=== PATIENT | male | born 1945 | race Caucasian/White ===

== ENCOUNTER → 2017-11-03 | Outpatient (CLI) | payer MEDICARE ==
[2017-11-03 20:53] LABS: Hemoglobin A1C 5.8 % (4.0-6.0)
== END | disposition home or self-care (01) ==
LOC: LABWHC1 08:42
PROVIDERS: ATTEND Family Medicine
DX: E11.9 Type 2 diabetes mellitus without complications (principal)
CPT/HCPCS: 36415; 83036

== ENCOUNTER 2017-12-02 11:34 | Emergency (ER) | payer MEDICARE ==
[2017-12-02 12:04] VITALS: PULSE 65
--- NOTE | 2017-12-02 14:03 | XR ---
EXAMINATION TYPE: XR pelvis AP view DATE OF EXAM: 12/02/2017 CLINICAL HISTORY: pain TECHNIQUE: Single view the pelvis is submitted. FINDINGS: No evidence for fracture, dislocation or bony lesion. Total left hip prosthesis is in plac e. SI joints appear symmetric. IMPRESSION: 1. No acute fracture or dislocation seen. ICD 10 NO FRACTURE, INITIAL EVALUATION
--- NOTE | 2017-12-02 14:05 | XR ---
EXAMINATION TYPE: XR forearm LT DATE OF EXAM: 12/02/2017 COMPARISON: NONE HISTORY: Pain following fall TECHNIQUE: 2 view left forearm FINDINGS: No acute fractures are evident. Soft tissues have mild prominence over the mid forearm. No radiopaque foreign bodies are evident. IMPRESSION: 1. Soft tissue swelling mid forearm region. 2. No acute osseous abnormality. 3. Follow-up exams can be performed 7-10 days from acute trauma for continued pain.
--- NOTE | 2017-12-02 14:05 | XR ---
EXAMINATION TYPE: XR hand complete LT DATE OF EXAM: 12/02/2017 CLINICAL HISTORY: pain TECHNIQUE: Frontal, lateral and oblique images of the left hand are obtained. COMPARISON: None. FINDINGS: There is no acute fracture/dislocation evident. Severe degenerative narrowing first carpom etacarpal joint space and bony fragmentation and sclerosis. The overlying soft tissue appears unremar kable. IMPRESSION: There is no acute fracture or dislocation. ICD 10 NO FRACTURE, INITIAL EVALUATION
--- NOTE | 2017-12-02 14:07 | XR ---
EXAMINATION TYPE: XR lumbosacral spine min 4V DATE OF EXAM: 12/02/2017 CLINICAL HISTORY: pain COMPARISON: NONE TECHNIQUE: Frontal, lateral, and oblique images of the lumbar spine are obtained. FINDINGS: There are 5 lumbar type vertebral bodies identified. The lumbar spine shows satisfactory alignment without evidence of acute fracture or dislocation. Vertebral body heights are within normal limits. Moderate to Severe multilevel degenerative disc space narrowing and spondylosis. Severe face t joint arthropathy. Abdominal aortic aneurysm measuring 4.2 cm AP dimension. IMPRESSION: 1. No acute fracture or dislocation is seen in the lumbar spine. 2. Infrarenal abdominal aortic aneurysm. ICD 10 NO FRACTURE, INITIAL EVALUATION
--- NOTE | 2017-12-02 14:23 | ED ---
Fall HPI - General Chief Complaint: Fall Stated Complaint: fall from ladder 12 foot drop Time Seen by Provider: 12/02/17 13:06 Source: patient, family, RN notes reviewed Mode of arrival: ambulatory Limitations: no limitations - History of Present Illness Initial Comments: This is a 72-year-old male presents emergency Department chief complaint of fall. Patient states that he was fixing his flagpole and states that he is on metoprolol ladder and fell off to the ground. Patient states that he fell down with the latter. Patient complains of low back pain and left arm pain. Patient has a small abrasion to his left arm he is up-to-date on his tetanus. Patient states he has has pain when moving his left hand fifth digit. Patient denies head injury no loss conscious denies any neck or any upper back pain. Patient has no chest pain or shortness of breath. Denies any abdominal pain. Patient states he does state that he should be checked as he had a fall from significant height. Patient does not take any blood thinners. - Related Data Home Medications Medication Instructions Recorded Confirmed ALPRAZolam 0.5 mg PO TID PRN 08/08/14 12/02/17 Ipratropium-Albuterol Nebulize 3 ml INHALATION RT-QID PRN 08/08/14 12/02/17 [Duoneb 0.5 mg-3 mg/3 ml Soln] Lisinopril 40 mg PO DAILY 08/08/14 12/02/17 Metoprolol Tartrate 50 mg PO BID 08/08/14 12/02/17 Montelukast [Singulair] 10 mg PO HS 08/08/14 12/02/17 Pravastatin Sodium [Pravachol] 20 mg PO HS 08/08/14 12/02/17 metFORMIN HCL [Metformin HCl ER] 500 mg PO BID 08/08/14 12/02/17 Albuterol Sulfate [Proventil Hfa] 2 puff INHALATION RT-QID PRN 06/04/16 12/02/17 Budesonide [Pulmicort] 0.5 mg INHALATION RT-BID 12/02/17 12/02/17 Budesonide/Formoterol Fumarate 2 puff INHALATION RT-BID 12/02/17 12/02/17 [Symbicort 160-4.5 Mcg Inhaler] amLODIPine [Norvasc] 10 mg PO DAILY 12/02/17 12/02/17 Allergies Allergy/AdvReac Type Severity Reaction Status Date / Time cyclobenzaprine AdvReac Hallucinati Verified 12/02/17 13:14 [From Flexeril] ons Review of Systems ROS Statement: Those systems with pertinent positive or pertinent negative responses have been documented in the HPI. ROS Other: All systems not noted in ROS Statement are negative. Past Medical History Past Medical History: COPD, Diabetes Mellitus, Hypertension, Osteoarthritis (OA) , Sleep Apnea/CPAP/BIPAP Additional Past Medical History / Comment(s): BACK PAIN/TAILBONE FX. KIDNEY STONES History of Any Multi-Drug Resistant Organisms: None Reported Past Surgical History: Hernia Repair, Orthopedic Surgery Additional Past Surgical History / Comment(s): LT OBINNA, RT TKA, TOTAL LEFT KNEE ARTHROPLASTY,. COLONOSCOPY Past Anesthesia/Blood Transfusion Reactions: No Reported Reaction Past Psychological History: Anxiety Smoking Status: Former smoker Past Alcohol Use History: None Reported Past Drug Use History: None Reported - Past Family History Brother(s) Additional Family Medical History / Comment(s): He has 4 brothers and one at age 70 from an unknown reason with history of pneumonia, COPD and diabetes. Two brothers have history of myocardial infarction, diabetes and COPD Daughter(s) Additional Family Medical History / Comment(s): He has one daughter with no major medical problems. Son(s) Additional Family Medical History / Comment(s): He has one son with diabetes. Sister(s) Family Medical History: Deep Vein Thrombosis (DVT), Pulmonary Embolus Additional Family Medical History / Comment(s): He has one sister that at age 58 with history of MS, DVT and pulmonary embolism. Father Family Medical History: Cancer Additional Family Medical History / Comment(s): Father at age 72 from brain cancer. Mother Family Medical History: Cancer Additional Family Medical History / Comment(s): Mother at age 65 from uterine or ovarian cancer. General Exam General appearance: alert, in no apparent distress Head exam: Present: atraumatic, normocephalic, normal inspection Eye exam: Present: normal appearance, PERRL, EOMI. Absent: scleral icterus, conjunctival injection, periorbital swelling Neck exam: Present: normal inspection. Absent: tenderness, meningismus, lymphadenopathy Respiratory exam: Present: normal lung sounds bilaterally. Absent: respiratory distress, wheezes, rales, rhonchi, stridor Cardiovascular Exam: Present: regular rate, normal rhythm, normal heart sounds. Absent: systolic murmur, diastolic murmur, rubs, gallop, clicks GI/Abdominal exam: Present: soft, normal bowel sounds. Absent: distended, tenderness, guarding, rebound, rigid Extremities exam: Present: other (Left forearm there is an area of ecchymosis small abrasion patient has mild tenderness with full range of motion. Patient also has tenderness over the fifth digit and pain with range of motion. Patient 's remaining from exam within normal limits.) Back exam: Present: normal inspection, full ROM, tenderness (Mild tenderness of the lumbar spine), paraspinal tenderness, vertebral tenderness. Absent: CVA tenderness (R), CVA tenderness (L) Neurological exam: Present: alert, oriented X3, CN II-XII intact, reflexes normal. Absent: motor sensory deficit Skin exam: Present: warm, dry, intact, normal color. Absent: rash Course Vital Signs 12/02/17 11:58 Temperature 97.7 F Pulse Rate 65 Respiratory 18 Rate Blood Pressure 134/64 O2 Sat by Pulse 95 Oximetry Medical Decision Making - Medical Decision Making 72-year-old male presented from it chief complaint of a fall. Patient x-rays of his lumbar spine, pelvis, left arm and left hand. There is no acute fractures. There is an incidental finding of infrarenal abdominal aortic aneurysm. Patient has no pain this time. Patient will follow-up for further imaging. Patient we discharge patient is up-to-date on his tetanus. Return parameters were discussed. Disposition Clinical Impression: Fall, Contusion of left arm, Abrasion of left arm, Low back pain Disposition: HOME SELF-CARE Condition: Stable Instructions: Back Pain (ED), Contusion in Adults (ED) Additional Instructions: Please return to the Emergency Department if symptoms worsen or any other concerns. Is patient prescribed a controlled substance at d/c from ED?: No Referrals: Michel Dent MD [Primary Care Provider] - 1-2 days
[2017-12-02 14:38] VITALS: BP 168/78; RESP 16; TEMP 97
== END 2017-12-02 14:56 | disposition home or self-care (01) ==
LOC: EC 11:34
DX: S40.022A Contusion of left upper arm, initial encounter (principal); S50.12XA Contusion of left forearm, initial encounter; M54.5 Low back pain; I71.4 Abdominal aortic aneurysm, without rupture; I10 Essential (primary) hypertension; J44.9 Chronic obstructive pulmonary disease, unspecified; E11.9 Type 2 diabetes mellitus without complications; G47.30 Sleep apnea, unspecified; Z87.891 Personal history of nicotine dependence; Z79.51 Long term (current) use of inhaled steroids; Z79.84 Long term (current) use of oral hypoglycemic drugs; Z79.899 Other long term (current) drug therapy; Z88.8 Allergy status to other drugs, medicaments and biological substances; Z99.89 Dependence on other enabling machines and devices; W11.XXXA Fall on and from ladder, initial encounter; Y92.009 Unspecified place in unspecified non-institutional (private) residence as the place of occurrence of the external cause
CPT/HCPCS: 72110; 72170; 99283

== ENCOUNTER → 2018-07-28 | Outpatient (CLI) | payer OTHER ==
--- NOTE | 2018-07-30 07:45 | CT ---
EXAMINATION TYPE: CT abdomen pelvis wo con DATE OF EXAM: 07/28/2018 COMPARISON: None INDICATION: Right side flank pain. DLP: 1179 mGycm, Automated exposure control for dose reduction was used. CONTRAST: 0 mL of Isovue 300. Study performed without Oral Contrast TECHNIQUE: Axial images were obtained from above the diaphragm to the pubic rami in the axial plane a t 5 mm thick sections. Reconstructed images are reviewed on the computer in the coronal plane. FINDINGS: Limited CT sections are obtained the lung bases. The lung bases are clear. CT ABDOMEN: Liver: Normal Spleen: There are some scattered calcified granuloma through the spleen. Pancreas: Normal Adrenal glands: The adrenal glands are normal. Gallbladder: Normal Kidneys: No masses are evident. There is a mild left hydronephrosis. Large nonobstructing calcificati ons are within the mid to inferior pole left kidney measuring 1.5 x 0.8 cm. Additional nonobstructing renal stones are at the inferior pole measuring 0.5 0.3, and 0.2 cm. No obstructing ureteral stone i s evident. There is a 2.0 cm cyst measuring 3 Hounsfield units extending from the superior anterior p ortion of the left kidney. There is an inferior medial right renal cyst measuring 1.6 cm and 10 Houns field units. Right-sided renal stones are present. These are nonobstructing. This includes a 0.3 cm c alcification in the anterior right mid kidney and a 0.6 cm calcification at the inferior pole right k idney. Aorta: Vascular calcification is within the aorta. There is fusiform prominence of the mid abdominal aorta with an AP diameter of 3.4 cm. This terminates at the bifurcation. Inferior vena cava: Normal. CT PELVIS: Loops of bowel within the abdomen and pelvis are normal. Study is performed without oral contrast limiting bowel evaluation. Appendix: Not identified. No suspicious tubular structures or inflammatory changes are evident. Urinary bladder: Normal. Genitourinary structures: Prostate is mild prominence. Some prostate calcifications present. Osseous structures: No suspicious lytic or sclerotic lesions. There is beam hardening artifact from l eft hip prosthesis. IMPRESSIONS: 1. Multiple bilateral renal stones. Identified renal stones appear to be nonobstructing. 2. There is some mild left hydronephrosis from uncertain etiology. 3. Bilateral renal cysts.
== END | disposition home or self-care (01) ==
LOC: RADCTMAIN 15:13
PROVIDERS: ATTEND Physician Assistant
DX: N13.2 Hydronephrosis with renal and ureteral calculous obstruction (principal); N28.1 Cyst of kidney, acquired
CPT/HCPCS: 74176

== ENCOUNTER → 2019-02-22 | Outpatient (CLI) | payer OTHER | LOC: CPPFTMAIN 10:18 | PROVIDERS: ATTEND Internal Medicine | DX: J98.8 Other specified respiratory disorders (principal) | CPT/HCPCS: 94060; 94726; 94729 ==

== ENCOUNTER → 2019-02-25 | Outpatient (CLI) | payer OTHER ==
[2019-02-25 17:11] LABS: African American GFR (CKD) 98.5 (60.0-200.0); Anion Gap 11.6 mmol/L (4.00-12.00); BUN/Creat Ratio 16.67 Ratio (12.00-20.00); Calcium 9.6 mg/dL (8.7-10.3); Carbon Dioxide 24.4 mmol/L (21.6-31.8); Potassium 4.5 mmol/L (3.5-5.5)
== END | disposition home or self-care (01) ==
LOC: LABWHC1 08:47
PROVIDERS: ATTEND Internal Medicine Cardiovascular Disease
DX: I10 Essential (primary) hypertension (principal)
CPT/HCPCS: 36415; 80048

== ENCOUNTER 2019-03-21 17:29 | Emergency (ER) | payer OTHER, MEDICARE ==
[2019-03-21 17:52] VITALS: RESP 18; TEMP 98.1
[2019-03-21 18:43] VITALS: BP 155/86; PULSE 77
[2019-03-21] MEDS ORDERED: LIDOCAINE 5% PATCH TOPICAL STA (18:48)
[2019-03-21] MEDS ORDERED: KETOROLAC 30 MG/ML 1 ML VIAL IM STA (18:49)
[2019-03-21] MEDS ORDERED: METHOCARBAMOL 500 MG TAB PO STA (18:49)
--- NOTE | 2019-03-21 18:56 | ED ---
General Adult HPI - General Chief complaint: Urogenital Stated complaint: POSS KIDNEY STONE Time Seen by Provider: 03/21/19 18:17 Source: patient Mode of arrival: ambulatory Limitations: no limitations - History of Present Illness Initial comments: Patient is a 74-year-old male with history of kidney stone, low back pain and abdominal aortic aneurysm is presenting to emergency Department with a chief complaint of back pain. Patient reports the symptoms started approximately 3 days ago and have not resolved. Patient reports the pain is located in the right paraspinal region near L5 and S1. Patient reports the pain is exacerbated with left and right rotation. Patient reports the pain does not radiate anywhere. Patient reports the past few days he has also noticed his urine turning, very brown". Patient denies any other urinary symptoms. Patient also reports he has an abdominal aortic aneurysm that is monitored. Ultrasound every 6 months. The most recent reading is 3.5 cm. Patient denies any abdominal pain nausea or vomiting. Patient denies any chest pain or shortness of breath. - Related Data Home Medications Medication Instructions Recorded Confirmed ALPRAZolam 0.5 mg PO TID PRN 08/08/14 03/21/19 Ipratropium-Albuterol Nebulize 3 ml INHALATION RT-QID PRN 08/08/14 03/21/19 [Duoneb 0.5 mg-3 mg/3 ml Soln] Lisinopril 40 mg PO DAILY 08/08/14 03/21/19 Metoprolol Tartrate 50 mg PO BID 08/08/14 03/21/19 Montelukast [Singulair] 10 mg PO HS 08/08/14 03/21/19 Pravastatin Sodium [Pravachol] 20 mg PO HS 08/08/14 03/21/19 metFORMIN HCL [Metformin HCl ER] 500 mg PO BID 08/08/14 03/21/19 Albuterol Sulfate [Proventil Hfa] 2 puff INHALATION RT-QID PRN 06/04/16 03/21/19 Budesonide [Pulmicort] 0.5 mg INHALATION RT-BID 12/02/17 03/21/19 Budesonide/Formoterol Fumarate 2 puff INHALATION RT-BID 12/02/17 03/21/19 [Symbicort 160-4.5 Mcg Inhaler] amLODIPine [Norvasc] 10 mg PO DAILY 12/02/17 03/21/19 Tamsulosin [Flomax] 0.4 mg PO DAILY 03/21/19 03/21/19 Previous Rx's Medication Instructions Recorded Lidocaine 5% Patch [Lidoderm 5% 1 patch TOPICAL DAILY #5 patch 03/21/19 Patch] Methocarbamol [Robaxin] 500 mg PO BID #15 tab 03/21/19 Allergies Allergy/AdvReac Type Severity Reaction Status Date / Time cyclobenzaprine AdvReac Hallucinati Verified 03/21/19 19:05 [From Flexeril] ons Review of Systems ROS Statement: Those systems with pertinent positive or pertinent negative responses have been documented in the HPI. ROS Other: All systems not noted in ROS Statement are negative. Past Medical History Past Medical History: COPD, Diabetes Mellitus, Hypertension, Osteoarthritis (OA), Sleep Apnea/CPAP/BIPAP Additional Past Medical History / Comment(s): BACK PAIN/TAILBONE FX. KIDNEY STONES History of Any Multi-Drug Resistant Organisms: None Reported Past Surgical History: Hernia Repair, Orthopedic Surgery Additional Past Surgical History / Comment(s): LT OBINNA, RT TKA, TOTAL LEFT KNEE ARTHROPLASTY,. COLONOSCOPY Past Anesthesia/Blood Transfusion Reactions: No Reported Reaction Past Psychological History: Anxiety Smoking Status: Former smoker Past Alcohol Use History: None Reported Past Drug Use History: None Reported - Past Family History Brother(s) Additional Family Medical History / Comment(s): He has 4 brothers and one at age 70 from an unknown reason with history of pneumonia, COPD and diabetes. Two brothers have history of myocardial infarction, diabetes and COPD Daughter(s) Additional Family Medical History / Comment(s): He has one daughter with no major medical problems. Son(s) Additional Family Medical History / Comment(s): He has one son with diabetes. Sister(s) Family Medical History: Deep Vein Thrombosis (DVT), Pulmonary Embolus Additional Family Medical History / Comment(s): He has one sister that at age 58 with history of MS, DVT and pulmonary embolism. Father Family Medical History: Cancer Additional Family Medical History / Comment(s): Father at age 72 from brain cancer. Mother Family Medical History: Cancer Additional Family Medical History / Comment(s): Mother at age 65 from uterine or ovarian cancer. General Exam Limitations: no limitations General appearance: alert, in no apparent distress, obese (Morbidly obese) Head exam: Present: atraumatic, normocephalic, normal inspection Eye exam: Present: normal appearance, PERRL, EOMI Pupils: Present: normal accommodation ENT exam: Present: normal exam, mucous membranes moist, normal external ear exam Neck exam: Present: normal inspection, full ROM. Absent: tenderness Respiratory exam: Present: normal lung sounds bilaterally Cardiovascular Exam: Present: regular rate, normal rhythm, normal heart sounds GI/Abdominal exam: Absent: tenderness, guarding, rebound, mass, pulsatile mass (Patient morbidly obese difficult to palpate for masses.) Extremities exam: Present: normal inspection, other (+2 ulnar and radial pulses bilaterally. +2 dorsalis pedis and posterior tibialis bilaterally.) Back exam: Present: normal inspection, muscle spasm, paraspinal tenderness (Right paraspinal tenderness near L5 and S1.). Absent: full ROM (Limited range of motion with left and right rotation), CVA tenderness (R), CVA tenderness (L), rash noted Neurological exam: Present: alert, oriented X3 Psychiatric exam: Present: normal affect, normal mood Skin exam: Present: warm, intact, normal color Course Vital Signs 03/21/19 03/21/19 03/21/19 17:49 18:40 20:11 Temperature 98.1 F 98.1 F Pulse Rate 84 77 77 Respiratory 18 18 18 Rate Blood Pressure 153/77 155/86 155/86 O2 Sat by Pulse 98 96 96 Oximetry Medical Decision Making - Medical Decision Making Patient is 74-year-old male with history of chronic low back pain is presenting to emergency Department with chief complaint of back pain. Patient reports he has developed right-sided low back pain has not radiated anywhere. Patient reports the pain is exacerbated with left and right rotation. Patient also does have a known abdominal aortic aneurysm that is monitored with imaging every 6 months. Last reading was 3.5 cm. She denies any abdominal pain. Patient does have a history of kidney stones but states that this pain does not feel like it. Based on physical examination I suspect the patient to have mechanical low back pain with no vertebral tenderness. Patient given Toradol, Lidoderm patch and Robaxin. On reevaluation patient reports she feels much better. Patient was concerned for possible UTI due to the color of his urine. UA is unremarkable. Patient will be discharged with muscle relaxers. Strict return parameters were thoroughly discussed with patient was understanding and agreeable. Patient advised to follow with primary care. Case discussed with physician. - Lab Data Lab Results 03/21/19 Range/Units 19:07 Urine Color Yellow Urine Appearance Clear (Clear) Urine pH 5.5 (5.0-8.0) Ur Specific [place] 1.019 (1.001-1.035) Urine Protein Trace H (Negative) Urine Glucose (UA) Negative (Negative) Urine Ketones Negative (Negative) Urine Blood Moderate H (Negative) Urine Nitrite Negative (Negative) Urine Bilirubin Negative (Negative) Urine Urobilinogen <2.0 (<2.0) mg/dL Ur Leukocyte Esterase Negative (Negative) Urine RBC 58 H (0-5) /hpf Urine WBC 2 (0-5) /hpf Ur Squamous Epith Cells <1 (0-4) /hpf Hyaline Casts 8 H (0-2) /lpf Urine Mucus Rare H (None) /hpf Disposition Clinical Impression: Low back pain Disposition: HOME SELF-CARE Condition: Stable Instructions (If sedation given, give patient instructions): Low Back Strain (ED) Additional Instructions: Please take prescribed medication as directed. Alternate between Tylenol and ibuprofen for pain control. Please return to emergency department if symptoms worsen. Prescriptions: Lidocaine 5% Patch [Lidoderm 5% Patch] 1 patch TOPICAL DAILY #5 patch Methocarbamol [Robaxin] 500 mg PO BID #15 tab Is patient prescribed a controlled substance at d/c from ED?: No Referrals: [facility],Clinic [Primary Care Provider] - 1-2 days Time of Disposition: 20:02
[2019-03-21 19:16] LABS: Appearance,Urine Clear (Clear); Bilirubin,Urine Negative (Negative); Blood,Urine Moderate (Negative); Color,Urine Yellow; Glucose,Urine (UA) Negative (Negative); Hyaline Casts,Urine 8 /lpf (0-2); Ketones,Urine Negative (Negative); Leukocyte Esterase,Urine Negative (Negative); Mucus,Urine Rare /hpf; Nitrite,Urine Negative (Negative); PH, Urine 5.5 (5.0-8.0); Protein,Urine Trace (Negative); RBC,Urine 58 /hpf (0-5); Specific Gravity,Urine 1.019 (1.001-1.035); Squamous Epithelial Cell,Urine <1 /hpf (0-4); Urobilinogen,Urine <2.0 mg/dL (<2.0); WBC,Urine 2 /hpf (0-5)
== END 2019-03-21 20:14 | disposition home or self-care (01) ==
LOC: EC 17:29
DX: M54.5 Low back pain (principal); G89.29 Other chronic pain; M62.830 Muscle spasm of back; I71.4 Abdominal aortic aneurysm, without rupture; E66.01 Morbid (severe) obesity due to excess calories; J44.9 Chronic obstructive pulmonary disease, unspecified; E11.9 Type 2 diabetes mellitus without complications; I10 Essential (primary) hypertension; M19.90 Unspecified osteoarthritis, unspecified site; G47.30 Sleep apnea, unspecified; F41.9 Anxiety disorder, unspecified; Z79.84 Long term (current) use of oral hypoglycemic drugs; Z79.51 Long term (current) use of inhaled steroids; Z79.899 Other long term (current) drug therapy; Z88.8 Allergy status to other drugs, medicaments and biological substances; Z87.891 Personal history of nicotine dependence; Z99.89 Dependence on other enabling machines and devices; Z96.651 Presence of right artificial knee joint; Z96.642 Presence of left artificial hip joint; Z68.42 Body mass index [BMI] 45.0-49.9, adult; Z87.442 Personal history of urinary calculi
CPT/HCPCS: 81001; 96372; 99283; J1885

== ENCOUNTER → 2019-04-05 | Outpatient (CLI) | payer MEDICARE ==
--- NOTE | 2019-04-05 09:34 | XR ---
EXAMINATION TYPE: XR lumbosacral spine min 4V DATE OF EXAM: 04/05/2019 CLINICAL HISTORY: pain COMPARISON: NONE TECHNIQUE: Frontal, lateral, and oblique images of the lumbar spine are obtained. FINDINGS: There are 5 lumbar type vertebral bodies identified. The lumbar spine shows satisfactory alignment without evidence of acute fracture or dislocation. Vertebral body heights are within normal limits. Moderate degenerative disc space narrowing and spondylosis. Moderate to severe lower lumbar facet joint arthropathy. The overlying soft tissue appears unremarkable. IMPRESSION: No acute fracture or dislocation is seen in the lumbar spine.ICD 10 NO FRACTURE, INITIAL EVALUATION
--- NOTE | 2019-04-05 16:55 | US ---
EXAMINATION TYPE: US kidneys/renal and bladder DATE OF EXAM: 04/05/2019 COMPARISON: CT 07/28/18, US 11/06/15 CLINICAL HISTORY: R31.9 Hematuria. History of renal stones. EXAM MEASUREMENTS: Right Kidney: 13.8 x 6.7 x 5.2 cm Left Kidney: 12.8 x 6.3 x 5.6 cm Post Void Residual Volume: 9.8 mL Right Kidney: No hydronephrosis or masses seen, nonshadowing echogenic foci in kidney, Left Kidney: No hydronephrosis seen, Upper pole cyst = 2.7 x 2.5 x 2.4 cm, 3 echogenic, shadowing joaquin al stones noted mid/lower pole = 0.6 cm, 0.6 cm, 1.3 cm Bladder: wnl Bilateral Jets seen: Yes Normal Post Void Residual: Yes Sub optimal exam overall due to patients large size. IMPRESSION: 1. Left renal cysts. 2. Nonshadowing nonobstructing renal stones bilaterally
== END | disposition home or self-care (01) ==
LOC: RADUSWWP 06:49
PROVIDERS: ATTEND Family Medicine
DX: N28.1 Cyst of kidney, acquired (principal); N20.0 Calculus of kidney; M54.5 Low back pain
CPT/HCPCS: 72110; 76770

== ENCOUNTER 2022-12-22 14:39 | Emergency (ER) | payer OTHER, MEDICARE ==
[2022-12-22] MEDS ORDERED: KETOROLAC 15 MG/ML 1 ML VIAL IM STA (15:08)
[2022-12-22] MEDS ORDERED: HYDROmorphone 0.5 MG/0.5 ML SYRINGE IM STA (15:17)
--- NOTE | 2022-12-22 15:54 | XR ---
EXAMINATION TYPE: XR shoulder complete RT DATE OF EXAM: 12/22/2022 CLINICAL HISTORY: pain TECHNIQUE: Three views of the right shoulder are obtained. COMPARISON: None FINDINGS: There is no acute fracture/dislocation evident. The acromioclavicular and glenohumeral nicholas int spaces appear moderately narrowed. Spur formation noted about the humeral head and glenoid.. The visualized ribs are intact and unremarkable. IMPRESSION: 1. There is no acute fracture or dislocation. ICD 10 NO FRACTURE, INITIAL EVALUATION
[2022-12-22] MEDS ORDERED: ACET/COD 300 MG/30 MG STARTER PACK 6 TAB BTL PO STA (16:43)
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
[2022-12-22 17:09] VITALS: BP 135/71; PULSE 80; RESP 18; TEMP 97.6
== END 2022-12-22 17:09 | disposition home or self-care (01) ==
LOC: EC 14:39
DX: S46.911A Strain of unspecified muscle, fascia and tendon at shoulder and upper arm level, right arm, initial encounter (principal); J44.9 Chronic obstructive pulmonary disease, unspecified; E11.9 Type 2 diabetes mellitus without complications; I10 Essential (primary) hypertension; M19.90 Unspecified osteoarthritis, unspecified site; G47.30 Sleep apnea, unspecified; F41.9 Anxiety disorder, unspecified; Z79.51 Long term (current) use of inhaled steroids; Z79.84 Long term (current) use of oral hypoglycemic drugs; Z79.1 Long term (current) use of non-steroidal anti-inflammatories (NSAID); Z79.899 Other long term (current) drug therapy; Z88.6 Allergy status to analgesic agent; W01.0XXA Fall on same level from slipping, tripping and stumbling without subsequent striking against object, initial encounter
CPT/HCPCS: 73030; 99283; 96372; J1170

== ENCOUNTER → 2023-02-12 | Outpatient (CLI) | payer MEDICARE ==
--- NOTE | 2023-02-12 10:36 | XR ---
EXAMINATION TYPE: XR cervical spine comp DATE OF EXAM: 02/12/2023 COMPARISON: None HISTORY: Weakness right upper extremity, neck and shoulder pain TECHNIQUE: 5 view cervical spine FINDINGS: Facet degenerative changes are present. There is left foraminal narrowing C2-3 C3-4. Modera te right foraminal narrowing is present at C4-5. Prevertebral space is normal. Posterior spinal lamel lar line is intact. Some mild posterior disc space narrowing is present C4-5. Odontoid is limited wit h overlying occiput. MRI can be performed as clinically indicated. IMPRESSION: 1. Mild C2-3 C3-4 left foraminal narrowing. 2. Moderate right C4-5 foraminal narrowing.
--- NOTE | 2023-02-19 10:19 | MR ---
EXAMINATION TYPE: MR shoulder RT wo con DATE OF EXAM: 02/12/2023 COMPARISON: X-ray 12/22/2022 HISTORY: Right shoulder pain due to injury. TECHNIQUE: Multiplanar, multisequence imaging of the right shoulder is performed without contrast. FINDINGS: Rotator Cuff: There is diffuse tendinopathy and thickening of the distal margins of the supraspinatus , infraspinatus and subscapularis tendons with complete or near complete the thickness tear of the ab ove tendons. Acromioclavicular Joint: There is severe hypertrophic change and narrowing of the AC joint with mass effect upon the rotator cuff resulting in impingement. Glenohumeral Joint: Severe narrowing of the glenohumeral joint spurring along the inferior margin of the glenoid and humerus. There is a small joint effusion. There is thickening of the inferior glenohu meral ligament without definitive tear. Labrum: Assessment of the labrum limited by motion suspect degenerative labral tear. Biceps Tendon: The long head of biceps is in normal location within bicipital groove. Increased fluid surrounding the tendon compatible with bicipital tendinosis. Bone marrow signal: No focal abnormal marrow signal is appreciated. Other: There is atrophic change of the visualized musculature correlate clinically. Intrasubstance mu scular signal associated with intramuscular strain. IMPRESSION: 1. Severe diffuse tendinopathy of the rotator cuff tendons with complete or near complete true thickn ess tears of the supraspinatus, infraspinatus, and subscapularis tendons. 2. Bicipital tendinosis. There is thickening of the tendon at the level the biceps anchor and Intrasubstance at the bicipital anchor suspected. 3. Severe glenohumeral joint 4. Severe AC joint arthropathy with impingement.
== END | disposition home or self-care (01) ==
LOC: RADMRIMAIN 08:33
PROVIDERS: ATTEND Family Medicine
DX: M19.011 Primary osteoarthritis, right shoulder (principal); M25.811 Other specified joint disorders, right shoulder; S46.011A Strain of muscle(s) and tendon(s) of the rotator cuff of right shoulder, initial encounter; M75.21 Bicipital tendinitis, right shoulder; M99.71 Connective tissue and disc stenosis of intervertebral foramina of cervical region; R29.898 Other symptoms and signs involving the musculoskeletal system
CPT/HCPCS: 72050

== ENCOUNTER → 2023-04-16 | Outpatient (CLI) | payer MEDICARE ==
--- NOTE | 2023-04-16 15:12 | CT ---
EXAMINATION TYPE: CT abdomen pelvis wo con DATE OF EXAM: 04/16/2023 COMPARISON: 07/28/2018 HISTORY: Suspected Lt side renal stone, hematuria. CT DLP: 2449.6 mGycm Automated exposure control for dose reduction was used. TECHNIQUE: Helical acquisition of images was performed from the lung bases through the pelvis. FINDINGS: LUNG BASES: There is calcification of the aortic valve. Trace of pericardial fluid. Heart size normal . Basilar atelectasis on the left. LIVER/GB: Multiple hepatic granuloma. PANCREAS: No significant abnormality is seen. SPLEEN: Numerous splenic granuloma. ADRENALS: Stable thickening of the left adrenal gland compatible with hyperplasia or benign adenoma. KIDNEYS: There is multiple punctate bilateral renal calculi the largest is seen on the left involving the mid to lower pole measuring 1.2 cm. There is mild left hydronephrosis secondary to a distal ureteral calc ulus measuring 4 mm in diameter in the mid pelvis. Axial image 111 series 3. There is a 1.8 cm upper pole left renal lesion which does not meet the criteria of a simple cyst by H ounsfield unit measurement of 26. There is a lower pole left renal lesion measuring 1.2 cm and 15 Irish nsfield units compatible with simple cyst. FREE AIR: No free air is visualized ADENOPATHY: None visualized REPRODUCTIVE ORGANS: No significant abnormality is seen URINARY BLADDER: Limited by artifact from a left hip prostheses. Bladder appears nondistended with n o obvious calcification. Prostate is enlarged measuring 5.5 cm. OSSEOUS STRUCTURES: Hypertrophic and degenerative changes of the spine. Postoperative changes involv ing the left hip both hip replacement surgery. BOWEL: 1 changes of diverticulosis but no CT evidence of diverticulitis. Appendix not seen with cert ainty. No evidence of obstruction. OTHER: There is a 3.6 cm infrarenal abdominal aortic aneurysm extending to the aortic bifurcation. Mi ld to moderate atherosclerotic plaque. IMPRESSION: 1. Bilateral nephrolithiasis with mild to moderate left hydronephrosis secondary to a distal left ure teral calculus, image 111 series 3, several centimeters above the UVJ. Measures 4 mm in diameter. 2. Indeterminate upper pole left renal lesion for which ultrasound recommended measuring 26 Hounsfiel d units. Infrarenal abdominal aortic aneurysm measuring 3.6 cm in maximal dimension and previously measuring 3 .4 cm
== END | disposition home or self-care (01) ==
LOC: RADCTMAIN 13:44
PROVIDERS: ATTEND Urology
DX: I71.43 Infrarenal abdominal aortic aneurysm, without rupture (principal); N13.2 Hydronephrosis with renal and ureteral calculous obstruction; R31.0 Gross hematuria; N23 Unspecified renal colic
CPT/HCPCS: 74176

== ENCOUNTER → 2023-04-22 | Outpatient (CLI) | payer MEDICARE ==
--- NOTE | 2023-04-22 10:25 | XR ---
EXAMINATION TYPE: XR KUB DATE OF EXAM: 04/22/2023 Comparison: 10/14/2015 Clinical History: 78-year-old male N20.0 CALCULUS L KIDNEY N20.1 CALCULUS L URETER Findings: 6 mm calcification projecting at the lower pole right kidney. 1.7 cm calcification left mid abdomen. Bilateral pelvic phleboliths are noted. Nonobstructive bowel gas pattern. Partially visualized left h ip total arthroplasty. Impression: A renal stone on either side measuring 6 mm on the right and 1.7 cm on the left. Bilateral pelvic phl eboliths.
== END | disposition home or self-care (01) ==
LOC: RADXRMAIN 09:18
PROVIDERS: ATTEND Urology
DX: N20.2 Calculus of kidney with calculus of ureter (principal)
CPT/HCPCS: 74018

== ENCOUNTER → 2023-05-13 | Outpatient (CLI) | payer MEDICARE ==
--- NOTE | 2023-05-13 12:12 | XR ---
EXAMINATION TYPE: XR KUB DATE OF EXAM: 05/13/2023 COMPARISON: KUB 04/22/2023, CT abdomen pelvis 04/16/2023 HISTORY: Calculus kidney, URETER TECHNIQUE: Supine KUB image of the abdomen is obtained FINDINGS: Small bowel demonstrates no evidence for dilatation or air fluid levels. Gas and fecal material is seen in non-distended colon. Stable left pelvic phlebolith. Redemonstration of left renal 1.5 cm calculus with additional for more calculus. Redemonstration of 5 mm right renal calculus. The osseous structures are intact. Degenerative changes of the lumbar spine. Left hip prosthesis. Ost eoarthritic changes of the right hip. IMPRESSION: Redemonstration of bilateral renal calculi with left-sided pelvic phleboliths.
== END | disposition home or self-care (01) ==
LOC: RADXRMAIN 11:41
PROVIDERS: ATTEND Urology
DX: N20.0 Calculus of kidney (principal); I86.2 Pelvic varices
CPT/HCPCS: 74018

== ENCOUNTER → 2023-06-10 | Outpatient (CLI) | payer MEDICARE ==
--- NOTE | 2023-06-10 19:13 | US ---
EXAMINATION TYPE: US kidneys/renal and bladder DATE OF EXAM: 06/10/2023 COMPARISON: CT abdomen and pelvis 04/16/2023 CLINICAL INDICATION: Male, 78 years old with history of N20.0 CALCULUS OF KIDNEY; Hx renal stones. N o pain at this time. EXAM MEASUREMENTS: Right Kidney: 12.4 x 5.2 x 5.0 cm Left Kidney: 10.9 x 5.3 x 5.4 cm Limited due to patient body habitus Right Kidney: No prominent hydronephrosis or masses seen Left Kidney: Lower pole calcification = 1.2 cm. Upper medial pole anechoic lesion = 3.7 x 3.4 x 2.8 c m. Compatible simple cyst Renal sinus mid/lower anechoic area, dilated renal collecting system vs mil d hydronephrosis = 2.5 x 1.1 cm Bladder: Distended, anechoic Bilateral Jets seen Findings. Correlate with CT findings of 04/16/2023 IMPRESSION: 1. Nonobstructing inferior pole left renal stone. 2. There may be some minimal prominence of the lower pole renal collecting system. Consider duplicati on with mild hydronephrosis. No obstructing etiology however is identified.
== END | disposition home or self-care (01) ==
LOC: RADUSWWP 14:49
PROVIDERS: ATTEND Urology
DX: N13.2 Hydronephrosis with renal and ureteral calculous obstruction (principal)
CPT/HCPCS: 76770

== ENCOUNTER → 2023-07-10 | Outpatient (CLI) | payer MEDICARE ==
--- NOTE | 2023-07-10 13:55 | US ---
EXAMINATION TYPE: US kidneys/renal and bladder DATE OF EXAM: 07/10/2023 COMPARISON: CLINICAL INDICATION: Male, 78 years old with history of N13.2 HYDRONEPHROSIS; No pain at this time. EXAM MEASUREMENTS: Right Kidney: 12.1 x 5.0 x 4.8 cm Left Kidney: 11.2 x 4.2 x 5.3 cm Suboptimal due to patient body habitus Right Kidney: No hydronephrosis or masses seen Left Kidney: Lower pole calcification = 0.8 cm. Upper medial pole anechoic lesion = 3.7 x 2.8 x 2.6 c m. Renal sinus mid/lower anechoic area, dilated renal collecting system vs mild hydronephrosis = 2.4 x 1.9 cm Bladder: nondistended, not well visualized Bilateral Jets not seen Incidental finding: multiple diffuse non shadowing echogenic foci in spleen There is no evidence for hydronephrosis at this point in time. No nephrolithiasis is seen. No shane s are identified. The urinary bladder is anechoic. Bilateral ureteral jets are seen. IMPRESSION: Left renal calcifications. No obstruction is identified.
== END | disposition home or self-care (01) ==
LOC: RADUSWWP 12:04
PROVIDERS: ATTEND Urology
DX: N28.89 Other specified disorders of kidney and ureter (principal); N13.2 Hydronephrosis with renal and ureteral calculous obstruction
CPT/HCPCS: 76770

== ENCOUNTER → 2023-07-24 | Outpatient (CLI) | payer MEDICARE ==
--- NOTE | 2023-07-24 09:23 | CT ---
EXAMINATION TYPE: CT abdomen pelvis wo con DATE OF EXAM: 07/24/2023 HISTORY: chronic kidney stones, bilateral flank pain CT DLP: 2235.2 mGycm. Automated Exposure Control for Dose Reduction was Utilized. TECHNIQUE: CT scan of the abdomen and pelvis is performed without oral or IV contrast. COMPARISON: Prior CT April 16, 2023 FINDINGS: Within the limitations of a non-contrast study, the following observations are made. LUNG BASES: Liver is heterogeneously hypodense consistent with fatty infiltrative hepatocellular dise ase. Occasional punctate calcification is redemonstrated. LIVER/GB: No significant abnormality is appreciated. PANCREAS: No significant abnormality is seen. SPLEEN: Scattered punctate calcific location throughout the spleen are again seen. Findings consisten t with product of old granulomatous disease. ADRENALS: No significant abnormality is seen. KIDNEYS: Approximate 3 calculi in lower pole right kidney measuring up to 6 mm in size redemonstrated . There is 2.3 cm partially exophytic simple appearing thin-walled cyst medially from the lower pole right kidney. No right-sided hydronephrosis. There is 3.3 cm partially exophytic thin-walled cyst ant eriorly from the upper pole left kidney redemonstrated. There are 2 left-sided renal calculi measurin g up to 1.7 cm in size lower pole level axial image 67. No left-sided hydronephrosis. There is howeve r new 8 mm calculus in the distal left ureter axial image 127. No intraluminal calculus in the urinar y bladder. BOWEL: Some diverticula in the left and sigmoid colon. No CT evidence for acute diverticulitis. GENITAL ORGANS: Mildly enlarged prostate gland consistent with BPH. LYMPH NODES: No greater than 1cm abdominal or pelvic lymph nodes are appreciated. OSSEOUS STRUCTURES: Metallic hardware from total left hip arthroplasty is present causing streak mague fact limiting evaluation of pelvic structures. Multilevel spurring in the thoracolumbar spine. OTHER: Moderate calcified plaque of the aorta extends into branch vessels. IMPRESSION: Bilateral nephrolithiasis redemonstrated. There is 8 mm calculus in the distal left urete r on current study but is not causing significant left-sided hydronephrosis. No right-sided hydroneph rosis or obstructing ureteral calculi seen.
== END | disposition home or self-care (01) ==
LOC: RADCTMAIN 08:49
PROVIDERS: ATTEND Urology
DX: N13.2 Hydronephrosis with renal and ureteral calculous obstruction (principal)
CPT/HCPCS: 74176

== ENCOUNTER → 2023-09-11 | Outpatient (CLI) | payer MEDICARE ==
[2023-09-11 11:35] LABS: Blood Urea Nitrogen 32.5 mg/dL (9.0-27.0); Calcium 10.4 mg/dL (8.7-10.3); Carbon Dioxide 22.4 mmol/L (21.6-31.8); Chloride 105 mmol/L (96-109); Glucose 135 mg/dL (70-110); Sodium 144 mmol/L (135-145)
[2023-09-11 11:39] LABS: Basophils # (A) 0.04 X 10*3/uL (0.00-0.10); Basophils % (A) 0.7 %; Eosinophils # (A) 0.29 X 10*3/uL (0.04-0.35); Eosinophils % (A) 5.3 %; HCT 37.7 % (39.6-50.0); HGB 11.6 g/dL (13.0-17.0); Lymphocytes # (A) 1.68 X 10*3/uL (0.90-5.00); Lymphocytes % (A) 30.5 %; MCH 29.1 pg (27.0-32.0); MCHC 30.8 g/dL (32.0-37.0); MCV 94.7 FL (80.0-97.0); Mean Platelet Volume 9.5 FL (9.5-12.2); Monocytes # (A) 0.41 X 10*3/uL (0.20-1.00); Monocytes % (A) 7.4 %; NRBC Per 100 WBC 0 X 10*3/uL (0.00-0.01); Neutrophils # (A) 3.07 X 10*3/uL (1.80-7.70); Neutrophils % (A) 55.7 %; Platelet Count 265 X 10*3/uL (140-440); RBC 3.98 X 10*6/uL (4.40-5.60); RDW 14.6 % (11.5-14.5); WBC 5.51 X 10*3/uL (4.50-10.00)
== END | disposition home or self-care (01) ==
LOC: LABPAT 07:02
PROVIDERS: ATTEND Urology
DX: Z01.812 Encounter for preprocedural laboratory examination (principal); N20.1 Calculus of ureter
CPT/HCPCS: 80048; 85025

== ENCOUNTER 2023-09-17 09:40 | Day surgery (SDC) | payer MEDICARE ==
[2023-09-11 15:40] VITALS: BMI 43.5
--- NOTE | 2023-09-15 07:02 | P.GSHP ---
History of Present Illness H&P Date: 09/15/23 Chief Complaint: Left ureteral calculus Patient is a 78-year-old white male with a history of urolithiasis. CT scan in April 2023 showed mild left hydronephrosis due to a 7 x 11 mm left distal ureteral calculus. He was also found to have a small right renal calculi and mu ltiple left renal calculi measuring up to 12 mm in size. He was experiencing left flank pain at that time, which has resolved. Repeat CT scan in July 24, 2023 showed a persistent left distal ureteral calculus. There was no hydronephrosis at that time. - Constitutional Constitutional: Denies chills, Denies fever - Gastrointestinal Gastrointestinal: Denies nausea, Denies vomiting - Genitourinary (Male) Genitourinary: Reports flank pain, Reports kidney stones Past Medical History Past Medical History: COPD, Diabetes Mellitus, Hypertension, Osteoarthritis (OA), Pneumonia, Sleep Apnea/CPAP/BIPAP Additional Past Medical History / Comment(s): KIDNEY STONES, uses cpap,vertigo, hx chronic back and rt shoulder pain,PSEUDOMONAS INFECTION IN LUNGS 2011 History of Any Multi-Drug Resistant Organisms: None Reported Past Surgical History: Hernia Repair, Orthopedic Surgery Additional Past Surgical History / Comment(s): LT OBINNA, RT TKA, TOTAL LEFT KNEE ARTHROPLASTY,. COLONOSCOPY Past Anesthesia/Blood Transfusion Reactions: No Reported Reaction, Motion Sickness Additional Past Anesthesia/Blood Transfusion Reaction / Comment(s): vertigo Smoking Status: Former smoker - Past Family History Brother(s) Additional Family Medical History / Comment(s): He has 4 brothers and one at age 70 from an unknown reason with history of pneumonia, COPD and diabetes. Two brothers have history of myocardial infarction, diabetes and COPD Daughter(s) Additional Family Medical History / Comment(s): He has one daughter with no major medical problems. Son(s) Family Medical History: No Reported History Additional Family Medical History / Comment(s): He has one son with diabetes. Sister(s) Family Medical History: Deep Vein Thrombosis (DVT), Pulmonary Embolus Additional Family Medical History / Comment(s): He has one sister that at age 58 with history of MS, DVT and pulmonary embolism. Father Family Medical History: Cancer Additional Family Medical History / Comment(s): Father at age 72 from brain cancer. Mother Family Medical History: Cancer Additional Family Medical History / Comment(s): Mother at age 65 from uterine or ovarian cancer. Medications and Allergies Home Medications Medication Instructions Recorded Confirmed Type ALPRAZolam 0.5 mg PO TID PRN 08/08/14 09/11/23 History Metoprolol Tartrate 50 mg PO BID 08/08/14 09/11/23 History Montelukast [Singulair] 10 mg PO HS 08/08/14 09/11/23 History lisinopriL 40 mg PO QAM 08/08/14 09/11/23 History metFORMIN HCL [Metformin HCl ER] 500 mg PO BID 08/08/14 09/11/23 History Albuterol Sulfate [Proventil Hfa] 2 puff INHALATION RT-QID PRN 06/04/16 09/11/23 History Budesonide [Pulmicort] 0.5 mg INHALATION RT-BID 12/02/17 09/11/23 History Budesonide/Formoterol Fumarate 2 puff INHALATION RT-BID 12/02/17 09/11/23 History [Symbicort 160-4.5 Mcg Inhaler] amLODIPine [Norvasc] 10 mg PO QAM 12/02/17 09/11/23 History Ascorbic Acid [Vitamin C] 500 mg PO DAILY 09/11/23 09/11/23 History Cholecalciferol [Vitamin D3 (25 50 mcg PO DAILY 09/11/23 09/11/23 History Mcg = 1000 Iu)] L.acidoph,Paracasei, B.lactis 1 each PO DAILY 09/11/23 09/11/23 History [Probiotic] Mv-Min/Folic/K1/Lycopen/Lutein 1 each PO DAILY 09/11/23 09/11/23 History [Centrum Silver Men Tablet] Turmeric/Turmeric Root Extract 1 each PO DAILY 09/11/23 09/11/23 History [Turmeric 450-50 mg Capsule] Vitamin B Complex 1 each PO DAILY 09/11/23 09/11/23 History Vitamin E Unk Dose 1 dose PO DAILY 09/11/23 09/11/23 History Allergies Allergy/AdvReac Type Severity Reaction Status Date / Time cyclobenzaprine AdvReac Hallucinati Verified 09/11/23 15:05 [From Flexeril] ons Surgical - Exam - General well developed, well nourished, no distress - Respiratory normal respiratory effort - Psychiatric oriented to time, oriented to person, oriented to place, speech is normal, memory intact Results - Imaging CT scan - abdomen: report reviewed, image reviewed Assessment and Plan (1) Calculus of ureter Status: Acute Code(s): N20.1 - CALCULUS OF URETER SNOMED Code(s): 77658489 Plan: Cystoscopy, left retrograde pyelogram, left ureteroscopy with Holmium laser lithotripsy and possible stone basketing, possible left ureteral stent insertion. The procedure has been reviewed in detail with the patient. He is aware of potential risks, which include anesthesia, bleeding, infection, inability to remove the calculus, and ureteral injury. He has elected to undergo removal of the ureteral calculus, but wishes to observe the renal calculi. He hopes to avoid stent placement.
[~2023-09-17 09:40] MED LIST: HYDROmorphone 0.5 MG/0.5 ML SYRINGE IVP PRN; LIDOCAINE 1% (10MG/ML) FOR IV START INTRADERMA PRN; MIDAZOLAM 2 MG/2 ML VIAL IV PRN
[2023-09-17] MEDS: LACTATED RINGERS 1,000 ML IV SCH (10:25)
--- NOTE | 2023-09-17 10:44 | XR ---
EXAMINATION TYPE: XR KUB DATE OF EXAM: 09/17/2023 Comparison: 05/13/2023 Clinical History: 78-year-old male presurgical evaluation for left ureteral stone, N20.1 Findings: Partially visualized left total hip arthroplasty. Nonobstructive bowel gas pattern. Left renal calcul us redemonstrated measuring 1.5 cm. The previous 4 mm stone on the left is no longer seen. 5 mm calcu coleen redemonstrated on the right. A couple phleboliths in the left side of the pelvis. Impression: Bilateral nephrolithiasis measuring up to 1.5 cm on the left. A previous 5 mm left-sided renal stone is no longer seen. A couple left-sided pelvic phleboliths are unchanged.
[2023-09-17 10:45] LABS: Glucose,Whole Blood 121 mg/dL (70-110)
[2023-09-17] MEDS: ONDANSETRON 4 MG/2 ML VIAL IVP ONE (10:48)
[2023-09-17] MEDS: DEXAMETHASONE SOD PHOSPHATE 4 MG/ML 1 ML VIAL IV ONE (10:48)
[2023-09-17] MEDS ORDERED: PHENYLEPHRINE-0.9% NACL SYG 1,000 MCG/10 ML SYRINGE ONE (12:38)
[2023-09-17] MEDS ORDERED: fentaNYL (PF) 50 MCG/ML 2 ML AMP ONE (12:38)
[2023-09-17] MEDS ORDERED: PROPOFOL 10 MG/ML 20 ML VIAL IV ONE (12:38)
[2023-09-17] MEDS ORDERED: MIDAZOLAM 2 MG/2 ML VIAL ONE (12:38)
[2023-09-17] MEDS ORDERED: SUCCINYLCHOLINE CHLORIDE 200 MG/10 ML VIAL IV ONE (12:38)
[2023-09-17] MEDS ORDERED: ePHEDrine 50 MG/ML 1 ML VIAL ONE (12:38)
[2023-09-17] MEDS ORDERED: LIDOCAINE 1% INJ 10MG/ML (20 ML MDV) ONE (12:38)
[2023-09-17] MEDS: IOPAMIDOL-370 100ML BTL MISCELLANE ONE (13:03)
[2023-09-17] MEDS: ceFAZolin 3 GM in SODIUM CHLORIDE 0.9% 100 ML IVPB PRN (13:04)
[2023-09-17] MEDS: LACTATED RINGERS 1,000 ML IV ONE (14:30)
--- NOTE | 2023-09-17 14:39 | P.OP ---
Date of Procedure: 09/17/23 Preoperative Diagnosis: Left ureteral calculus Postoperative Diagnosis: Same Procedure(s) Performed: Cystoscopy, left retrograde pyelogram, left ureteroscopy with Holmium laser lithotripsy and stone basketing Anesthesia: EDWARDO Surgeon: Melo Davila Estimated Blood Loss (ml): 5 IV fluids (ml): 700 Pathology: other (Left ureteral calculus fragments, sent for chemical analysis) Condition: stable Disposition: PACU Indications for Procedure: Patient is a 78-year-old white male with a history of urolithiasis. CT scan in April 2023 showed mild left hydronephrosis due to a 7 x 11 mm left distal ureteral calculus. He was also found to have a small right renal calculi and multiple left renal calculi measuring up to 12 mm in size. He was experiencing left flank pain at that time, which has resolved. Repeat CT scan in July 24, 2023 showed a persistent left distal ureteral calculus. There was no hydronephrosis at that time. Operative Findings: Left distal ureteral calculus, removed completely. Description of Procedure: The patient was taken to the operating room and placed in the dorsolithotomy position, with legs supported in Prabhjot stirrups. The external genitalia was prepped and draped sterilely. The 30 lens was used to introduce the 21-[place] Island[place] Echols cystoscopic sheath through the urethra and into the bladder under direct vision. The prostatic urethra showed evidence of mild lateral lobe enlargement. The bladder was examined in its entirety. Both ureteral orifices were normal anatomic location and configuration. No tumors or foreign bodies were seen. Using a 10 [place] Islander cone-tip catheter, a left retrograde pyelogram was performed. The calculus was seen within the left distal ureter, approximately 2 cm cephalad to the left ureteral orifice. The ureter proximal to this was mildly dilated. The cystoscope was removed, and the Echols semirigid ureteroscope was advanced into the bladder under direct vision. The left ureteral orifice was cannulated, and the ureteroscope was advanced up to the calculus. The 365 micron Holmium laser probe was passed through the ureteroscope, and lithotripsy was performed. As the calculus was fragmented, the majority of the calculus fragments passed distally into the bladder. A 1.9 [place] Islander 0 tip nitinol basket was used to remove the remaining calculus fragments. Final inspection of the ureter showed no evidence of ureteral trauma, and no residual calculus fragments. The ureteroscope was removed, and the cystoscope was replaced into the bladder. Calculus fragments were removed from the bladder, and sent for chemical analys is. The bladder was emptied and the cystoscope removed. The patient tolerated the procedure well and was taken to the recovery room in stable condition. EWELINA ROJAS Report: Procedure Acuity: Elective Stone Size and Location: 7 x 11 mm, left distal ureter Ureteral Dilation: No Ureteral Access Sheath Used: No Stone Sent for Analysis: Yes All Stones/Fragments Were Removed with a Basket: Yes Complications: No Preoperative Antibiotics Given: Yes Stent Placed: No Discharge Medications: Toradol, tamsulosin
[2023-09-17 14:40] VITALS: TEMP 97
[2023-09-17 14:53] LABS: Glucose,Whole Blood 144 mg/dL (70-110)
[2023-09-17 15:16] VITALS: BP 113/67; PULSE 88; RESP 20
--- NOTE | 2023-09-18 08:43 | FL ---
EXAMINATION TYPE: FL urography retrograde Intraoperative/procedural fluoroscopic services were provid ed. Total fluoroscopy time is 13 seconds with a total of 2 submitted images to PACS. Please see the o perative/procedural note for further details. DAP: [id number] mGym2
== END 2023-09-17 16:08 | disposition home or self-care (01) ==
LOC: OR 09:40
PROVIDERS: ATTEND Urology
DX: N20.1 Calculus of ureter (principal); I10 Essential (primary) hypertension; J44.9 Chronic obstructive pulmonary disease, unspecified; G47.33 Obstructive sleep apnea (adult) (pediatric); M19.90 Unspecified osteoarthritis, unspecified site; E11.9 Type 2 diabetes mellitus without complications; F41.9 Anxiety disorder, unspecified; Z98.890 Other specified postprocedural states; Z96.642 Presence of left artificial hip joint; Z96.653 Presence of artificial knee joint, bilateral; Z87.891 Personal history of nicotine dependence; Z83.3 Family history of diabetes mellitus; Z82.49 Family history of ischemic heart disease and other diseases of the circulatory system; Z83.2 Family history of diseases of the blood and blood-forming organs and certain disorders involving the immune mechanism; Z79.84 Long term (current) use of oral hypoglycemic drugs; Z95.1 Presence of aortocoronary bypass graft; Z79.51 Long term (current) use of inhaled steroids; Z88.8 Allergy status to other drugs, medicaments and biological substances; Z88.2 Allergy status to sulfonamides; Z79.899 Other long term (current) drug therapy
CPT/HCPCS: 82365; 74420; 74018; 52353; C1758; J2250; J0330; J1100; J0690; J2405; J2001; J3010; J2704; Q9967; J2371

== ENCOUNTER → 2023-12-08 | Outpatient (CLI) | payer OTHER ==
--- NOTE | 2023-12-08 11:06 | US ---
EXAMINATION TYPE: US duplex aorta DATE OF EXAM: 12/08/2023 COMPARISON: 08/15/2022, 07/24/2023. 04/16/2023. 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 And stable from prior CT on 07/24/2023 and a back to at least 04/16/2023.
== END | disposition home or self-care (01) ==
LOC: RADUSWWP 08:49
PROVIDERS: ATTEND Surgery
DX: I71.43 Infrarenal abdominal aortic aneurysm, without rupture (principal)
CPT/HCPCS: 93979

== ENCOUNTER → 2025-01-05 | Outpatient (CLI) | payer OTHER ==
--- NOTE | 2025-01-05 08:26 | US ---
EXAMINATION TYPE: US duplex aorta DATE OF EXAM: 01/05/2025 COMPARISON: Ultrasound duplex aorta 12/08/23, CT abdomen pelvis 07/24/2023 CLINICAL INDICATION: Male, 79 years old with history of I71.43 INFRARENAL ABDOMINAL AORTIC ANEURYSM, WITHO; AAA TECHNIQUE: Multiple sonographic images of the abdominal aorta are obtained with grayscale and color D oppler imaging. 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 AAA seen mid aorta measuring 4.1 x 3.7cm The visualized portions of the liver demonstrate increased echogenicity. Consistent with hepatic stea tosis. IMPRESSION: 4.1 x 3.7 cm abdominal aortic aneurysm. Previously measured 3.5 cm. Recommendation: Repeat Ultrasound in 1 year per Society of [employer] Recommendations. [facility], , 01/05/2025 8:23 AM
== END | disposition home or self-care (01) ==
LOC: RADUSWWP 12-26 07:15
PROVIDERS: ATTEND Surgery
DX: I71.43 Infrarenal abdominal aortic aneurysm, without rupture (principal)